=== PATIENT | female | born 1990 | race Caucasian/White ===

== ENCOUNTER 2017-10-08 18:30 | Inpatient (IN) | payer OTHER ==
[2017-10-09] MEDS ORDERED: Witch Hazel PAD* JAR TOPICAL PRN (00:36)
[2017-10-09] MEDS ORDERED: Glycerin ADULT SUPP PR PRN (00:36)
[2017-10-09] MEDS ORDERED: Dibucaine 1% 28.35 GM TUBE PR PRN (00:36)
[2017-10-09] MEDS ORDERED: Acetaminophen TAB* 325 MG PO PRN (00:36)
[2017-10-09] MEDS ORDERED: Oxytocin in LR* 20 UNITS/1,000 ML BAG IVPB SCH (01:00)
[2017-10-09] MEDS ORDERED: Simethicone TAB* 80 MG TAB.CHEW PO SCH (08:30)
[2017-10-09] MEDS: Docusate CAP* 100 MG PO SCH ×2 (08:45→14:14)
--- NOTE | 2017-10-09 12:54 | PTEDU ---
Patient Name: OLYA COSTELLO OLYA COSTELLO selected video: Follow Me Mum: [employer] [place] [facility] to view on 018 at 12:54:29 PM from [id number]
[2017-10-09] MEDS: Ibuprofen TAB* 600 MG PO PRN ×2 (14:09→21:04)
[2017-10-09] MEDS ORDERED: Docusate CAP* 100 MG ONE (21:01)
[2017-10-10 06:52] LABS: Hematocrit 36 % (35-47); Hemoglobin 12.2 g/dl (12.0-16.0); Mean Corpuscular HGB Conc 34 g/dl (31-36); Mean Corpuscular Hemoglobin 30 pg (27-31); Mean Corpuscular Volume 90 fL (80-97); Mean Platelet Volume 9 um3 (7.4-10.4); Platelet Count 178 10^3/ul (150-450); Red Blood Count 4.01 10^6/ul (4.0-5.4); Red Cell Distribution Width 14 % (10.5-15); White Blood Count 14.9 10^3/ul (3.5-10.8)
[2017-10-10 07:28] LABS: ABS Basophils 0 10^3/ul (0-0.2); ABS Eosinophils 0.4 10^3/ul (0-0.6); ABS Lymphocytes 3.1 10^3/ul (1.0-4.8); ABS Neutrophils 10.3 10^3/ul (1.5-7.7); ABS Nucleated RBC 0 10^3/ul; Eosinophil % 2.7 % (0-6); Lymphocyte % 21.1 % (25-47); Nucleated Red Blood Cells % 0
[2017-10-10] MEDS: Ibuprofen TAB* 600 MG PO PRN ×3 (07:38→21:19)
[2017-10-10] MEDS: Docusate CAP* 100 MG PO SCH ×3 (07:39→21:19)
[2017-10-10] MEDS ORDERED: Ferrous Gluconate TAB* 324 MG TAB PO SCH (09:00)
[2017-10-11] MEDS: Ibuprofen TAB* 600 MG PO PRN ×2 (03:28→09:35)
--- NOTE | 2017-10-11 07:47 | PTEDU ---
Patient Name: OLYA COSTELLO OLYA COSTELLO selected video: Never Ever Shake a Baby to view on 10/11/2017 at 7:46:12 AM from [id number] [id number]
[2017-10-11 08:34] VITALS: BP 131/70
[2017-10-11] MEDS: Docusate CAP* 100 MG PO SCH (09:35)
== END 2017-10-11 11:05 | disposition home or self-care (01) | DRG 774 ==
LOC: MCHOBOUT 18:30 → MCHOB 18:53
PROVIDERS: ADMIT Midwife; ATTEND Midwife
PROC: 4A1HX4Z Monitoring of Products of Conception, Cardiac Electrical Activity, External Approach (ICD-10-PCS; principal; 2017-10-08)
PROC: 10E0XZZ Delivery of Products of Conception, External Approach (ICD-10-PCS; 2017-10-08)
PROC: 0HQ9XZZ Repair Perineum Skin, External Approach (ICD-10-PCS; 2017-10-08)
PROC: 10907ZC Drainage of Amniotic Fluid, Therapeutic from Products of Conception, Via Natural or Artificial Opening (ICD-10-PCS; 2017-10-08)
DX: O69.81X0 Labor and delivery complicated by cord around neck, without compression, not applicable or unspecified (principal); O98.52 Other viral diseases complicating childbirth; O69.82X0 Labor and delivery complicated by other cord entanglement, without compression, not applicable or unspecified; B00.9 Herpesviral infection, unspecified; O70.0 First degree perineal laceration during delivery; Z37.0 Single live birth; Z3A.39 39 weeks gestation of pregnancy
CPT/HCPCS: 36415; 85025; A9270-GY